=== PATIENT | male | born 1975 | race Caucasian/White ===

== ENCOUNTER 2020-09-07 09:52 | Emergency (ER) | payer BC, SELFPAY ==
[2020-09-07 09:54] VITALS: BP 143/100; PULSE 99; RESP 18; TEMP 35.6; O2SAT 100; BMI 32.7
--- NOTE | 2020-09-07 10:16 | ED.DCSUM_ITS ---
History of Present Illness Chief Complaint: General Illness Informant: Patient Onset: Weeks Context: Gradual Onset Timing: Continuous Narrative: Patient is a 44-year-old male with no known past medical history presenting with a couple weeks of progressive polyuria and polydipsia. Patient states he feels thirsty all the time and is now getting up every 30 minutes or so to urinate at night. He states his urine is very clear in color. Feels that his mouth is dry. He knows he is been having some muscle cramps as well. He states he has a family history of diabetes mellitus with his father. He has not seen a doctor in 8 years or so. He denies any other complaints such as headache, vision changes, sore throat, chest pain, shortness of breath, nausea, vomiting or change in bowel habits. No pain with urination or testicular pain. No discharge from the penis noted. No other complaints at this time. Past Medical History - Allergies and Home Meds Allergies/Adverse Reactions: Allergies Penicillins Adverse Reaction (Verified 09/07/20 09:57) Vomiting Primary Care Physician: Sylvester Bai MD [NON-STAFF] - Past Medical History: None Surgical History: noncontributory, - - Knee surgery Lives: Spouse/ Significant Other Review of Systems General: Reports: -. Denies: Chills, Fever, Sweats Eyes: Denies: Visual changes - bilaterally, Diplopia ENT: Reports: - - Dry mouth. Denies: Rhinorrhea, Sore throat Cardiovascular: Denies: Chest pain, Palpitations Respiratory: Denies: Dyspnea, Cough, Dyspnea on exertion Gastrointestinal: Denies: Abdominal pain, Nausea, Vomiting, Diarrhea, Melena, Hematochezia Genitourinary: Denies: Dysuria, Hematuria, Frequency Musculoskeletal: Reports: - - Leg cramping. Denies: Back pain, Extremity Pain Skin: Denies: Rash, Wounds Neurological: Denies: Headache, Weakness, Numbness Endocrine: Reports: Polyuria, Polydipsia Physical Exam Vital Signs/Narrative: Vital Signs Temp Pulse Resp BP Pulse Ox 09/07/20 09:54 96.1 F L 99 18 143/100 H 100 Inital Vital Signs reviewed: Yes General: Well nourished, Well developed, No Acute Distress Head: Normocephalic, Atraumatic Eyes: Perrl, EOMI ENT: No rhinorrhea, TM's clear, Dry mucous membranes. Negative for: Nasal congestion Neck: Supple, Nontender Cardiovascular: Regular rate, Regular rhythm, No murmurs Respiratory: No distress, CTA bilaterally, Chest nontender Abdomen: Soft, Nontender, Nondistended, Normal bowel sounds Back: Nontender, Normal Inspection Extremities: Nontender, No edema Skin: Normal color, No rash Neurological: Alert, Oriented x3, Cranial nerves II-XII grossly intact, Normal Strength, Normal Sensation Psychological: Normal affect, Normal Mood Diagnostic/Tx/Re-eval Laboratory Data 09/07/20 09/07/20 09/07/20 10:30 10:30 11:15 WBC 5.5 RBC 5.05 Hgb 15.1 Hct 44.7 MCV 88.5 MCH 29.9 MCHC 33.8 RDW Std Deviation 40.8 RDW Coeff of Alondra 12.6 Plt Count 248 MPV 10.0 Immature Gran % (Auto) 0.400 Neut % (Auto) 54.5 Lymph % (Auto) 34.0 [place] % (Auto) 8.1 Eos % (Auto) 2.5 Baso % (Auto) 0.5 Absolute Neuts (auto) 3.0 Absolute Lymphs (auto) 1.88 Nucleated RBC % 0 Sodium 136 Potassium 4.1 Chloride 104 Carbon Dioxide 26.0 Anion Gap 6 BUN 19 H Creatinine 1.10 Estim Creat Clear Calc 92.10 Est GFR (MDRD) Af Amer 92 Est GFR (MDRD) Non-Af 76 BUN/Creatinine Ratio 17.3 Glucose 392 H Calcium 8.7 Magnesium 2.2 Urine Color Yellow Urine Clarity Clear Urine pH 6.0 Ur Specific [place] 1.020 Urine Protein Negative Urine Glucose (UA) 1000 H Urine Ketones 5 H Urine Occult Blood 10 H Urine Nitrite Negative Urine Bilirubin Negative Urine Urobilinogen Normal Ur Leukocyte Esterase Negative Urine RBC 0-5 SEEN Urine WBC 0 SEEN Ur Squamous Epith Cells 0 SEEN Urine Bacteria 0 SEEN Urine Mucus 0 SEEN POC Glucose 09/07/20 12:15 WBC RBC Hgb Hct MCV MCH MCHC RDW Std Deviation RDW Coeff of Alondra Plt Count MPV Immature Gran % (Auto) Neut % (Auto) Lymph % (Auto) [place] % (Auto) Eos % (Auto) Baso % (Auto) Absolute Neuts (auto) Absolute Lymphs (auto) Nucleated RBC % Sodium Potassium Chloride Carbon Dioxide Anion Gap BUN Creatinine Estim Creat Clear Calc Est GFR (MDRD) Af Amer Est GFR (MDRD) Non-Af BUN/Creatinine Ratio Glucose Calcium Magnesium Urine Color Urine Clarity Urine pH Ur Specific [place] Urine Protein Urine Glucose (UA) Urine Ketones Urine Occult Blood Urine Nitrite Urine Bilirubin Urine Urobilinogen Ur Leukocyte Esterase Urine RBC Urine WBC Ur Squamous Epith Cells Urine Bacteria Urine Mucus POC Glucose 333 H - Medical Decision Making Evaluated for a few weeks of polyuria and polydipsia. His vital signs are normal. She does appear to have dry mucosal membranes otherwise has a benign physical exam. Urinalysis is consistent with glucosuria but no infection. He does have an elevated blood glucose of almost 400 but he has a normal anion gap and normal kidney function. Patient is given a liter of fluids and his glucose was rechecked. Is now 333. Patient is given 6 units of insulin and will be discharged home to follow-up with primary care. Patient states he like to follow-up with Dr. Bai and I did contact him. He is aware the patient will need quick follow-up and instruction of the patient call tomorrow. Patient be started on Metformin for primary management of his diabetes mellitus. Patient is given return precautions. He is counseled on the side effects of Metformin and to start taking it once a day instead of twice a day as a prescription will be written. Patient is counseled on signs and symptoms requiring return to the emergency room. Patient verbalizes agreement and understand this plan. Patient discharged home in stable and improved condition. ED Disposition - Plan for ED Patient: Disposition: Home or Assisted Living Diagnosis: Hyperglycemia, New onset type 2 diabetes mellitus Instructions: ED Diabetes Overview, ED DIET Diabetic, ED Hyperglycemia New Susp Diabetes Prescriptions: Metformin HCl 500 mg PO BID #60 tab Transmission Status: Pending to [facility]/pharmacy #[id number] Referrals: Sylvester Bai MD [NON-STAFF] - Additional Instructions: Please follow-up with Dr. Bai and call the office tomorrow. He been given his contact information. We will start you on Metformin. The prescriptions for twice a day will please start taking it once a day for the first 5 days to prevent GI side effects. Drink plenty of fluids.
[2020-09-07 10:38] LABS: Absolute Lymphocyte Count 1.88 X10^3/uL (0.83-4.51); Basophil# 0.03 X10^3/uL; Basophil% 0.5 % (0-1); Eosinophil# 0.14 X10^3/uL; Eosinophils% 2.5 % (0-5); Hematocrit 44.7 % (40-54); Hemoglobin 15.1 g/dL (13.0-16.5); Lymphocyte # 1.88 X10^3/ul (4.0); Mean Corp Hgb Conc 33.8 g/dL (32-36); Mean Corpuscular Hgb 29.9 pg (27.0-32.0); Mean Corpuscular Volume 88.5 fL (80-94); Monocyte# 0.45 X10^3/uL; Monocyte% 8.1 % (0-10); NRBC Flagged by Analyzer 0 % (0-5); Neutrophil # 3.01 X10^3/uL (2.7-7.7); Neutrophil % 54.5 % (47-70); Platelet Count 248 K/mm3 (150-450); RBC Distribution Width CV 12.6 % (11.6-14.6); RBC Distribution Width SD 40.8 fl (35.1-43.9); Red Blood Count 5.05 M/mm3 (4.6-6.2); White Blood Count 5.5 K/mm3 (4.4-11.0)
[2020-09-07 10:51] LABS: Anion Gap 6 (5-15); BUN 19 mg/dL (7-18); BUN/Creat Ratio 17.3 RATIO (10-20); Calcium,Total 8.7 mg/dL (8.5-10.1); Chloride 104 mmol/L (98-107); EST Glomerular Filtration Rate 76 mL/min (>60); Est Glom Filt Rate - Afr Amer 92 mL/min (>60); Glucose 392 mg/dL (74-106); Magnesium 2.2 mg/dL (1.6-2.6); Potassium 4.1 mmol/L (3.5-5.1); Sodium Level 136 mmol/L (136-145)
[2020-09-07] MEDS: 0.9% Normal Saline 1,000 ML 1000 ML IV (11:01)
[2020-09-07 11:22] LABS: Bacteria 0 SEEN /hpf (None Seen); Mucous, Urine 0 SEEN /hpf (<or=2+); Squamous Epithelial Cells - UA 0 SEEN /hpf (0-5); White Blood Cells 0 SEEN /hpf (0-5)
[2020-09-07 11:29] LABS: Color, Urine Yellow (Yellow); Glucose, Dipstick 1000 mg/dl (Normal); Ketone-Dipstick 5 mg/dl (Negative); Leukocyte Esterase-Dipstick Negative /ul (Negative); Nitrite-Dipstick Negative (Negative); Occult Blood-Urine 10 /ul (Negative); Protein-Dipstick Negative (Negative); Urine Bilirubin Dipstick Negative (Negative); Urine Clarity Clear (Clear); Urine Urobilinogen Normal (Normal)
[2020-09-07 11:35] LABS: Red Blood Cells-Urine 0-5 SEEN /hpf (0-5)
[2020-09-07 12:21] LABS: Bedside Glucose 333 mg/dL (70-110)
[2020-09-07] MEDS: Insulin Lispro 100 UNIT/ML INSULN.PEN 6 UNIT SC (12:54)
[2020-09-07 13:30] VITALS: BP 140/78; PULSE 74; RESP 18; O2SAT 99
== END 2020-09-07 13:32 | disposition home or self-care (01) ==
PROVIDERS: Emergency Provider Emergency Medicine
DX: E11.65 Type 2 diabetes mellitus with hyperglycemia (principal)
CPT/HCPCS: 80048; 81001; 82962; 83735; 85025; 96360; 96361; 99283; J7030; A4216

== ENCOUNTER → 2022-03-17 | Outpatient (CLI) | payer BC, SELFPAY ==
[2022-03-17 12:29] LABS: Cholesterol 166 mg/dL (200); Glucose 147 mg/dL (74-106); High Density Lipoprotein 29 mg/dL; Triglycerides 222 mg/dL; Very Low Density Lipoprotein 44 mg/dL (5-40)
== END | disposition home or self-care (01) ==
LOC: MTLAB 09:45
PROVIDERS: PCP Family Medicine; Referring Provider Family Medicine; Visit Provider Family Medicine
DX: E11.65 Type 2 diabetes mellitus with hyperglycemia (principal); Z13.220 Encounter for screening for lipoid disorders
CPT/HCPCS: 36415; 80061; 82947